=== PATIENT | female | born 1965 | race Hispanic/Latino ===

== ENCOUNTER 2024-12-16 01:31 | Emergency (ER) | payer OTHER ==
[2024-12-16] MEDS ORDERED: MAGNES/ALUMIN/SIMET 30ML UCUP ONE (01:54)
[2024-12-16] MEDS ORDERED: FAMOTIDINE 20 MG/2 ML VIAL IV ONE (01:54)
[2024-12-16] MEDS ORDERED: LIDOCAINE VISCOUS 2% 10ML ORAL SOLN ONE (01:54)
[2024-12-16 02:30] LABS: Absolute Eosinophils 0.2 K/uL (0-0.5); Absolute Lymphocytes (CBC) 1.7 K/uL (0.7-4.9); Absolute Monocytes 0.5 K/uL (0.1-1.3); Absolute Neutrophil 4.3 K/uL (1.8-8.0); Basophils % 0.7 % (0-1.3); Eosinophils % 2.6 % (0-4.4); Hematocrit 38.6 % (36.0-45.0); Lymphocytes % 25.5 % (15.3-44.8); MCH 29.4 pg (27.0-35.0); MCHC 33.7 g/dL (32.0-36.0); MCV 87.3 fL (80-100); MPV 8.5 fL (7.6-11.3); Monocytes % 7.5 % (3.3-12.3); Neutrophils % 63.7 % (41.7-73.7); Platelets 241 thou/uL (152-406); RBC Red Blood Cell Count 4.42 M/uL (3.86-4.86); Red Cell Distribution Width 14.4 % (12.1-15.2)
[2024-12-16] MEDS ORDERED: ONDANSETRON 4 MG/2 ML VIAL ONE (02:35)
[2024-12-16 02:36] LABS: Specific Gravity 1.024 (1.005-1.030); Sqamous Epithelial <5 /HPF (None Seen); Urine Bacteria None Seen /HPF (<20); Urine Bilirubin NEGATIVE (Negative); Urine Blood 1+ (Negative); Urine Clarity Clear (Clear); Urine Color Light-Yellow (Yellow); Urine Culture Reflex Order NOT NEEDED; Urine Glucose NEGATIVE (Negative); Urine Ketones NEGATIVE (Negative); Urine Microscopic Reflex YN ORDER UMIC; Urine Mucus Slight /HPF (None Seen); Urine Nitrite NEGATIVE (Negative); Urine Protein TRACE (Negative); Urine Urobilinogen Normal (Normal); Urine WBC <5 /HPF (<5)
[2024-12-16] MEDS ORDERED: MORPHINE 4 MG/ML SYR ONE (02:36)
[2024-12-16 02:47] LABS: Albumin 3.7 g/dL (3.4-5.0); Anion Gap 8.7 mEq/L (5.0-15.0); Bilirubin Total 0.3 mg/dL (0.2-1.0); Globulin 3.6 g/dL (2.3-3.5); Potassium 3.7 mEq/L (3.5-5.1); Protein, Total 7.3 g/dL (6.4-8.2)
--- NOTE | 2024-12-16 03:25 | RAD REPORT ---
EXAM: US Abdomen Limited, Right Upper Quadrant CLINICAL HISTORY: The patient is 59 years old and is Female; Abd pain;Nausea / vomiting TECHNIQUE: Real-time ultrasound of the right upper quadrant with image documentation. COMPARISON: No relevant prior studies available. FINDINGS: Liver: Visualized liver is normal. No intrahepatic bile duct dilation. Gallbladder: No gallstones. No gallbladder wall thickening. No pericholecystic fluid. Sonographic Avery's sign is reportedly negative. Common bile duct: Common bile duct is normal. No stones. No dilation. Pancreas: Unremarkable as visualized. Right kidney: Unremarkable. No stones. No solid mass. No hydronephrosis. * A single impression for all exams can be found at the end of this report EXAM: CT Abdomen and Pelvis With Intravenous Contrast CLINICAL HISTORY: The patient is 59 years old and is Female; Abd pain;Nausea / vomiting TECHNIQUE: Axial computed tomography images of the abdomen and pelvis with intravenous contrast. Sagittal and coronal reformatted images were created and reviewed. This CT exam was performed using one or more of the following dose reduction techniques: automated exposure control, adjustmen t of the mA and/or kV according to patient size, and/or use of iterative reconstruction technique. COMPARISON: No relevant prior studies available. FINDINGS: Lung bases: Unremarkable. No mass. No consolidation. ABDOMEN: Liver: Small 9 mm hypoattenuating lesion in the right posterior liver. Gallbladder and bile ducts: Unremarkable. No calcified stones. No ductal dilation. Pancreas: Unremarkable. No mass. No ductal dilation. Spleen: Unremarkable. No splenomegaly. Adrenals: Unremarkable. No mass. Kidneys and ureters: Unremarkable. No solid mass. No hydronephrosis. Stomach and bowel: Unremarkable. No obstruction. No mucosal thickening. PELVIS: Appendix: No findings to suggest acute appendicitis. Bladder: Unremarkable. Reproductive: Uterus is not seen. ABDOMEN and PELVIS: Intraperitoneal space: Unremarkable. No free air. No significant fluid collection. Bones/joints: Disc space narrowing with degenerative endplate changes in the spine. No acute fracture. No dislocation. Soft tissues: Unremarkable. Vasculature: Unremarkable. No abdominal aortic aneurysm. Lymph nodes: Unremarkable. No enlarged lymph nodes. * A single impression for all exams can be found at the end of this report IMPRESSION: US Abdomen Limited, Right Upper Quadrant: No gallstones. No gallbladder wall thickening. No pericholecystic fluid. Sonographic Avery's sign is reportedly negative. CT Abdomen and Pelvis With Intravenous Contrast: No acute finding in the abdomen/pelvis. Electronically signed by: Schuyler Perkins MD 12/16/2024 03:21 AM [facility] 8 Due to temporary technical issues with the PACS/[employer] reporting system, reports are being signed by the in-house radiologist without review as a courtesy to ensure prompt reporting the interpreting radiologist is fully responsible for the content of the report. Transcribed Date/Time: 12/16/2024 3:24 AM
--- NOTE | 2024-12-16 03:39 | RAD REPORT ---
EXAM: US Abdomen Limited, Right Upper Quadrant CLINICAL HISTORY: The patient is 59 years old and is Female; Abd pain;Nausea / vomiting TECHNIQUE: Real-time ultrasound of the right upper quadrant with image documentation. COMPARISON: No relevant prior studies available. FINDINGS: Liver: Visualized liver is normal. No intrahepatic bile duct dilation. Gallbladder: No gallstones. No gallbladder wall thickening. No pericholecystic fluid. Sonographic Avery's sign is reportedly negative. Common bile duct: Common bile duct is normal. No stones. No dilation. Pancreas: Unremarkable as visualized. Right kidney: Unremarkable. No stones. No solid mass. No hydronephrosis. * A single impression for all exams can be found at the end of this report EXAM: CT Abdomen and Pelvis With Intravenous Contrast CLINICAL HISTORY: The patient is 59 years old and is Female; Abd pain;Nausea / vomiting TECHNIQUE: Axial computed tomography images of the abdomen and pelvis with intravenous contrast. Sagittal and coronal reformatted images were created and reviewed. This CT exam was performed using one or more of the following dose reduction techniques: automated exposure control, adjustmen t of the mA and/or kV according to patient size, and/or use of iterative reconstruction technique. COMPARISON: No relevant prior studies available. FINDINGS: Lung bases: Unremarkable. No mass. No consolidation. ABDOMEN: Liver: Small 9 mm hypoattenuating lesion in the right posterior liver. Gallbladder and bile ducts: Unremarkable. No calcified stones. No ductal dilation. Pancreas: Unremarkable. No mass. No ductal dilation. Spleen: Unremarkable. No splenomegaly. Adrenals: Unremarkable. No mass. Kidneys and ureters: Unremarkable. No solid mass. No hydronephrosis. Stomach and bowel: Unremarkable. No obstruction. No mucosal thickening. PELVIS: Appendix: No findings to suggest acute appendicitis. Bladder: Unremarkable. Reproductive: Uterus is not seen. ABDOMEN and PELVIS: Intraperitoneal space: Unremarkable. No free air. No significant fluid collection. Bones/joints: Disc space narrowing with degenerative endplate changes in the spine. No acute fracture. No dislocation. Soft tissues: Unremarkable. Vasculature: Unremarkable. No abdominal aortic aneurysm. Lymph nodes: Unremarkable. No enlarged lymph nodes. * A single impression for all exams can be found at the end of this report IMPRESSION: US Abdomen Limited, Right Upper Quadrant: No gallstones. No gallbladder wall thickening. No pericholecystic fluid. Sonographic Avery's sign is reportedly negative. CT Abdomen and Pelvis With Intravenous Contrast: No acute finding in the abdomen/pelvis. Electronically signed by: Schuyler Perkins MD 12/16/2024 03:21 AM [facility] 8 Due to temporary technical issues with the PACS/[employer] reporting system, reports are being jermaine d by the in-house radiologist without review as a courtesy to ensure prompt reporting the interpreting radiologist is fully responsible for the content of the report. Transcribed Date/Time: 12/16/2024 3:38 AM
--- NOTE | 2024-12-16 03:52 | ER ---
Nurse's Notes [facility] Name: Geena Lino Age: 59 yrs Sex: Female : 1965 Arrival Date: 12/16/2024 Time: 01:31 Bed 5 Private MD: Diagnosis: Acute gastritis without bleeding;Upper abdominal pain, unspecified Presentation: 12/16 01:44 Chief complaint: Patient states: epigastric pain that started between 7 and 730. vc1 Briefly felt better after vomiting but then it came back and started radiating to the back. Coronavirus screen: Client denies travel out of the [place] in the last 14 days. At this time, the client does not indicate any symptoms associated with coronavirus-19. Ebola Screen: Patient negative for fever greater than or equal to 101.5 degrees Fahrenheit, and additional compatible Ebola Virus Disease symptoms Patient denies exposure to infectious person. Patient denies travel to an Ebola-affected area in the 21 days before illness onset. No symptoms or risks identified at this time. Initial Sepsis Screen: Does the patient meet any 2 criteria? No. Patient's initial sepsis screen is negative. Does the patient have a suspected source of infection? No. Patient's initial sepsis screen is negative. Risk Assessment: Do you want to hurt yourself or someone else? Patient reports no desire to harm self or others. Onset of symptoms was December 16, 2024. Care prior to arrival: None. Activity prior to arrival: None. Mechanism of Injury: No Mechanism of Injury. Transition of care: patient was not received from another setting of care. 01:44 Method Of Arrival: Ambulatory vc1 01:44 Acuity: HERACLIO 3 vc1 Triage Assessment: 01:51 General: Appears in no apparent distress. uncomfortable, Behavior is calm, cooperative, vc1 appropriate for age. Pain: Complains of pain in epigastric area Pain radiates to right mid back and left mid back Pain currently is 10 out of 10 on a pain scale. EENT: No deficits noted. No signs and/or symptoms were reported regarding the EENT system. Neuro: Level of Consciousness is awake, alert, obeys commands, Oriented to person, place, time, situation, Appropriate for age. Cardiovascular: Capillary refill < 3 seconds Patient's skin is warm and dry. Respiratory: Airway is patent Respiratory effort is even, unlabored, Respiratory pattern is regular, symmetrical. GI: Abdomen is round non-distended, Reports bloating, epigastric pain, flatulence, gaseousness, Pain is 10 out of 10 on a pain scale. : No deficits noted. No signs and/or symptoms were reported regarding the genitourinary system. Derm: Skin is intact, is healthy with good turgor, Skin is dry, Skin is normal, Skin temperature is warm. Musculoskeletal: Circulation, motion, and sensation intact. Range of motion: intact in all extremities. Historical: - Allergies: :47 Avelox in NaCl (iso-osmotic); vc1 - Home Meds: :47 Adderall XR Oral [Active]; ProAir RespiClick 90 mcg/actuation inhalation Aerosol vc1 Powder, Breath Activated [Active]; - PMHx: :47 Asthma; vc1 - PSHx: :47 Total abdominal hysterectomy; Ligation of fallopian tube; vc1 - Immunization history:: Client reports receiving the 2nd dose of the Covid vaccine, Flu vaccine is not up to date. - Infectious Disease History:: Denies. - Family history:: not pertinent. - Social history:: Smoking status: Patient denies any tobacco usage or history of. - Hospitalizations: : No recent hospitalization is reported. Screenin:50 [facility] ED Fall Risk Assessment (Adult) History of falling in the last 3 months, vc1 including since admission No falls in past 3 months (0 pts) Confusion or Disorientation No (0 pts) Intoxicated or Sedated No (0 pts) Impaired Gait No (0 pts) Mobility Assist Device Used No (0 pt) Altered Elimination No (0 pt) Score/Fall Risk Level 0 - 2 = Low Risk Oriented to surroundings, Maintained a safe environment, Educated pt \T\ family on fall prevention, incl call for assistance when getting out of bed, Hourly rounding (assess needs \T\ fall precautionary measures) done. Abuse screen: Denies threats or abuse. Nutritional screening: No deficits noted. Tuberculosis screening: No symptoms or risk factors identified. Assessment: :47 Reassessment: Patient and/or family updated on plan of care and expected duration. Pain br2 level reassessed. Patient is alert, oriented x 3, equal unlabored respirations, skin warm/dry/pink. General: Appears uncomfortable, Behavior is calm, cooperative. Pain: Complains of pain in xiphoid area and abdomen Pain radiates to left mid back and right mid back Pain currently is 10 out of 10 on a pain scale. Quality of pain is described as pressure, sharp, stabbing, Pain began 1900. Neuro: [place]on Agitation-Sedation Scale (RASS): 0 - Alert and Calm Level of Consciousness is awake, alert, obeys commands, Oriented to person, place, time, situation. Cardiovascular: Capillary refill < 3 seconds. Respiratory: Airway is patent Respiratory effort is even, unlabored, Respiratory pattern is regular, symmetrical. GI: Reports epigastric pain, nausea, vomiting. : No signs and/or symptoms were reported regarding the genitourinary system. EENT: No signs and/or symptoms were reported regarding the EENT system. Derm: No signs and/or symptoms reported regarding the dermatologic system. Musculoskeletal: Capillary refill < 3 seconds, Range of motion: intact in all extremities. Vital Signs: 01:44 BP 155 / 100; Pulse 84; Resp 16; Temp 98; Pulse Ox 100% ; Weight 57.61 kg; Height 5 ft. vc1 1 in. ; Pain 10/10; 03:22 BP 165 / 104; Pulse 79; Resp 18; Pulse Ox 98% on R/A; br2 04:26 BP 165 / 104; Pulse 74; Resp 18; Pulse Ox 97% ; Pain 3/10; br2 01:44 Body Mass Index 24.00 (57.61 kg, 154.94 cm) vc1 01:44 Pain Scale: Adult vc1 04:26 Pain Scale: Adult br2 ED Course: 01:36 Patient arrived in ED. gm2 01:38 Jessee Reeves MD is Attending Physician. rn 01:47 Triage completed. vc1 01:50 Arm band placed on right wrist. vc1 01:51 Patient has correct armband on for positive identification. Bed in low position. Call vc1 light in reach. Pulse ox on. NIBP on. 01:51 Inserted saline lock: 20 gauge in right antecubital area, using aseptic technique. br2 Blood collected. Flushed with 10 mL NS. 02:08 CBC with Diff Sent. br2 02:08 CMP Sent. br2 02:08 Lipase Sent. br2 02:08 Urinalysis w/ reflexes Sent. br2 02:08 Troponin High Sensitivity Sent. br2 02:09 Thao Goff, RN is Primary Nurse. al5 02:21 US Abdomen Limited In Process Unspecified. EDMS 02:27 EKG done, by ED staff. hw 03:04 CT Abd/Pelvis - IV Contrast Only In Process Unspecified. EDMS 04:26 IV discontinued, intact, bleeding controlled, No redness/swelling at site. Pressure br2 dressing applied. 04:27 Provided Education on: DISCHARGE INSTRUCTIONS. br2 04:27 No provider procedures requiring assistance completed. br2 Administered Medications: 02:03 Drug: Famotidine IVP 20 mg IVP once; dilute with 10 mL 0.9% NaCl; give over 2 minutes br2 Route: IVP; Site: right antecubital; 02:30 Follow up: Response: No adverse reaction br2 02:03 Drug: GI Cocktail without - (Maalox PO 30 ml, Lidocaine Mucous Membrane 2 % 15 br2 ml) PO once Route: PO; 02:30 Follow up: Response: No adverse reaction br2 02:42 Drug: morphine IVP or IV 4 mg IVP once over 4 mins Route: IVP; Infused Over: 4 mins; br2 Site: right antecubital; 03:15 Follow up: Response: No adverse reaction; Pain is decreased br2 02:42 Drug: Ondansetron IVP 4 mg IVP once; over 2 minutes Route: IVP; Site: right antecubital;br2 03:15 Follow up: Response: No adverse reaction br2 Medication: 01:55 VIS not applicable for this client. vc1 Outcome: 03:52 Discharge ordered by . rn 04:27 Discharged to home ambulatory, br2 04:27 Condition: improved 04:27 Discharge instructions given to patient, Instructed on discharge instructions, follow up and referral plans. medication usage, Demonstrated understanding of instructions, follow-up care, medications, Prescriptions given X 1, 04:28 Patient left the ED. br2 Signatures: Dispatcher [employer] EDMS Jessee Reeves MD MD rn Calcote, Vanessa RN RN vc1 Rebecca Waddell gm2 Thao Goff RN RN al5 Augusta Adair RN RN br2 Ann Gomez Corrections: (The following items were deleted from the chart) 01:50 01:47 PSHx: None; vc1 vc1
--- NOTE | 2024-12-16 03:52 | EDPHYS ---
Physician Documentation [facility] Name: Geena Lino Age: 59 yrs Sex: Female : 1965 Arrival Date: 12/16/2024 Time: 01:31 Bed 5 Private MD: ED Physician Jessee Reeves HPI: 12/16 01:49 This 59 yrs old Female presents to ER via Ambulatory with complaints of rn Abdominal Pain. 01:49 The patient presents with abdominal pain in the epigastric area. Onset: The rn symptoms/episode began/occurred last night. The symptoms radiate to Associated signs and symptoms: Pertinent positives: nausea and vomiting, Pertinent negatives: blood in stools, chest pain, fever, hematuria, shortness of breath, vomiting blood. The symptoms are described as achy, crampy. Modifying factors: The symptoms are alleviated by nothing, the symptoms are aggravated by touching the area. Severity of pain: At its worst the pain was moderate in the emergency department the pain is unchanged. The patient has not experienced similar symptoms in the past. Patient reports epigastric abdominal pain that began last night, tried antacid medication, going to the bathroom, induced vomiting and nothing helped. Epigastric pain radiates to the back. No fever or chills. No trauma. No blood in emesis or in stool. Has acid problems and has been under a lot of stress lately. Had fish last night and abdominal pain started shortly after.. Historical: - Allergies: 01:47 Avelox in NaCl (iso-osmotic); vc1 - Home Meds: 01:47 Adderall XR Oral [Active]; ProAir RespiClick 90 mcg/actuation inhalation Aerosol vc1 Powder, Breath Activated [Active]; - PMHx: 01:47 Asthma; vc1 - PSHx: 01:47 Total abdominal hysterectomy; Ligation of fallopian tube; vc1 - Immunization history:: Client reports receiving the 2nd dose of the Covid vaccine, Flu vaccine is not up to date. - Infectious Disease History:: Denies. - Family history:: not pertinent. - Social history:: Smoking status: Patient denies any tobacco usage or history of. - Hospitalizations: : No recent hospitalization is reported. ROS: 01:49 Constitutional: Negative for fever, chills, and weight loss, Neck: Negative for injury, rn pain, and swelling, Cardiovascular: Negative for chest pain, palpitations, and edema, Respiratory: Negative for shortness of breath, cough, wheezing, and pleuritic chest pain, Abdomen/GI: Positive for abdominal pain with nausea and vomiting Back: Negative for injury and pain, MS/Extremity: Negative for injury and deformity, Skin: Negative for injury, rash, and discoloration, Neuro: Negative for headache, weakness, numbness, tingling, and seizure, Exam: 01:49 Constitutional: This is a well developed, well nourished patient who is awake, alert, rn and in no acute distress. Ambulatory to room without assistance or difficulty Cardiovascular: Regular rate and rhythm. No pulse deficits. Respiratory: No increased work of breathing, no retractions or nasal flaring. Abdomen/GI: Soft, epigastric tenderness without rebound or guarding. Negative Avery MS/ Extremity: Pulses equal, no cyanosis. Neuro: Awake and alert, GCS 15 02:30 ECG was reviewed by the Attending Physician. rn Vital Signs: 01:44 BP 155 / 100; Pulse 84; Resp 16; Temp 98; Pulse Ox 100% ; Weight 57.61 kg; Height 5 ft. vc1 1 in. ; Pain 10/10; 03:22 BP 165 / 104; Pulse 79; Resp 18; Pulse Ox 98% on R/A; br2 04:26 BP 165 / 104; Pulse 74; Resp 18; Pulse Ox 97% ; Pain 3/10; br2 01:44 Body Mass Index 24.00 (57.61 kg, 154.94 cm) vc1 01:44 Pain Scale: Adult vc1 04:26 Pain Scale: Adult br2 MDM: 01:38 Medical Screening Exam initiated rn 02:58 ED course: Ultrasound of gallbladder negative per mechanic sound technician. rn 03:50 Differential diagnosis: bowel obstruction, cholecystitis, Cholelithiasis, rn diverticulitis, gastritis, gastroesophageal reflux disease, non-specific abd pain, pancreatitis, Peptic Ulcer Disease, Perf. Duodenal Ulcer, Perf. Gastric Ulcer, Ureterolithiasis, urinary tract infection. Data reviewed: vital signs, nurses notes, lab test result(s), radiologic studies, CT scan, ultrasound, and as a result, I will discharge patient. Counseling: I had a detailed discussion with the patient and/or guardian regarding the historical points, exam findings, and any diagnostic results supporting the discharge/admit diagnosis, lab results, radiology results, the need for outpatient follow up, to return to the emergency department if symptoms worsen or persist or if there are any questions or concerns that arise at home. Response to treatment: the patient's symptoms have markedly improved after treatment, and as a result, I will discharge patient. Special discussion: Based on the patient's Hx, exam, and Dx evaluation, there is no indication for emergent surgery or inpatient Tx. It is understood by the patient/guardian that if the Sx's persist or worsen they need to return immediately for re-evaluation. I discussed with the patient/guardian in detail that at this point there is no indication for admission to the hospital. It is understood, however, that if the symptoms persist or worsen the patient needs to return immediately for re-evaluation. Based on the history and exam findings, there is no indication for further emergent testing or inpatient evaluation. I discussed with the patient/guardian the need to see the director corporate communications for further evaluation of the symptoms. ED course: No acute findings and workup today including CT abdomen pelvis and ultrasound. Most likely gastritis versus ulcer versus food poisoning. Will discharge home with Protonix and recommend GI follow-up. Return precautions given and understood.. 03:58 ED course: I have personally reviewed all of the results, including but not limited to rn blood tests and imaging deemed necessary to safely discharge this patient at this time. All results given to and printed out for patient. I personally went over all the results with the patient and answered all questions. Patient will follow-up with PCP and or specialist as discussed. Return precautions given and understood.. 12/16 01:38 Order name: CBC with Diff; Complete Time: 02:36 12/16 01:38 Order name: CMP; Complete Time: 02:49 12/16 01:38 Order name: Lipase; Complete Time: 02:49 12/16 01:38 Order name: Urinalysis w/ reflexes; Complete Time: 02:42 12/16 01:49 Order name: Troponin High Sensitivity; Complete Time: 02:58 12/16 01:38 Order name: CT Abd/Pelvis - IV Contrast Only 12/16 01:45 Order name: US Abdomen Limited 12/16 01:49 Order name: EKG; Complete Time: :49 12/16 01:38 Order name: IV Saline Lock; Complete Time: :48 rn 12/16 01:38 Order name: Labs collected and sent; Complete Time: :48 rn 12/16 01:49 Order name: EKG - Nurse/Tech; Complete Time: 02:28 rn EC:30 Rate is 67 beats/min. Rhythm is regular. QRS [place] is Normal. DE interval is normal. QRS rn interval is normal. QT interval is normal. No Q waves. T waves are Normal. No ST changes noted. Clinical impression: Normal ECG. Reviewed by me. Administered Medications: 02:03 Drug: Famotidine IVP 20 mg IVP once; dilute with 10 mL 0.9% NaCl; give over 2 minutes br2 Route: IVP; Site: right antecubital; 02:30 Follow up: Response: No adverse reaction br2 02:03 Drug: GI Cocktail without - (Maalox PO 30 ml, Lidocaine Mucous Membrane 2 % 15 br2 ml) PO once Route: PO; 02:30 Follow up: Response: No adverse reaction br2 02:42 Drug: morphine IVP or IV 4 mg IVP once over 4 mins Route: IVP; Infused Over: 4 mins; br2 Site: right antecubital; 03:15 Follow up: Response: No adverse reaction; Pain is decreased br2 02:42 Drug: Ondansetron IVP 4 mg IVP once; over 2 minutes Route: IVP; Site: right antecubital;br2 03:15 Follow up: Response: No adverse reaction br2 Disposition Summary: 12/16/24 03:52 Discharge Ordered Notes: Location: Home rn Problem: new rn Symptoms: have improved rn Condition: Stable rn Diagnosis - Acute gastritis without bleeding rn - Upper abdominal pain, unspecified rn Followup: rn - With: Private Physician - When: As needed - Reason: Recheck today's complaints, Re-evaluation by your physician Discharge Instructions: - Discharge Summary Sheet rn - Abdominal Pain, Adult rn - Gastritis, Adult rn - Gastroesophageal Reflux Disease, Adult rn Forms: - Medication Reconciliation Form rn - Antibiotic furniture fabricator - Prescription Opioid Use rn - Patient Portal Instructions rn - Leadership Thank You Letter rn Prescriptions: - Protonix 40 mg Oral Tablet - take 1 tablet ORAL route once daily; 30 tablet; Refills: 0, Product Selection rn Permitted Signatures: Dispatcher [employer] Jessee Jerry MD MD rn CalcKrystin bernardo RN RN vc1 Augusta Adair RN RN br2 Corrections: (The following items were deleted from the chart) 01:50 01:47 PSHx: None; vc1 vc1
[2024-12-16 07:22] VITALS: TEMP 98
[2024-12-16 07:28] VITALS: BP 165/104
[2024-12-16 07:33] VITALS: O2SAT 97
--- NOTE | 2024-12-21 12:49 | EKG ---
Test Date: 2024-12-16 Test Time: 02:22:31 Integration Technician: [place] MEASUREMENT RESULTS: Intervals: Rate: 67 MI: 142 QRSD: 72 QT: 398 QTc: 420 [place]: P: 71 MI: 142 QRS: 6 T: 42 INTERPRETIVE STATEMENTS: Normal sinus rhythm Normal ECG No previous ECG available for comparison Electronically Signed On 12-21-24 12:38:00 THERAPY TECHNICIAN by Moose Paul
== END 2024-12-16 04:28 | disposition home or self-care (01) ==
LOC: ER 01:31
DX: K29.00 Acute gastritis without bleeding (principal)
CPT/HCPCS: 85025; 81001; 36415; 84484; 83690; 80053; 74177; 76705; 96375; 96374; 99285; Q9967; J2405; 93005